=== PATIENT | male | born 1990 | race Two or more races ===

== ENCOUNTER 2023-04-04 17:17 | Emergency (ER) | payer SELFPAY ==
[~2023-04-04] VITALS: Ht 170.2 cm; Wt 81.8 kg
[2023-04-04 18:09] LABS: Basophils # (auto) 0 10 ^3/uL (0-0.2); Basophils % (auto) 0.4 % (0.0-2.0); Eosinophils # (auto) 0.2 10 ^3/uL (0-0.8); Eosinophils % (auto) 2.5 % (0.0-7.0); Hematocrit 45.4 % (41.0-53.0); Hemoglobin 15.8 g/dL (13.5-17.5); Lymphocytes # (auto) 1.9 10 ^3/uL (0.4-5.4); Lymphocytes % (auto) 25.1 % (10.0-50.0); Mean Corpuscular Hemoglobin 29.6 pg (28.0-32.0); Mean Corpuscular Hgb Conc. 34.8 g/dL (32.0-36.0); Monocytes % (auto) 12.5 % (0.0-12.0); Neutrophils # (auto) 4.6 10 ^3/uL (1.6-8.6); Neutrophils % (auto) 59.5 % (37.0-80.0); Nucleated Red Blood Cells % 0.2 %; Red Blood Cells 5.34 10^6/uL (4.5-5.90); Red Cell Distribution Width 12.7 % (11.8-14.3); White Blood Cell 7.7 10^3/uL (4.4-10.8)
[2023-04-04 18:28] LABS: Potassium 3.2 mmol/L (3.5-5.1)
[2023-04-04 18:34] LABS: Albumin 4.3 g/dL (3.4-5.0); BUN/Creatinine Ratio 9.2 (10.0-20.0)
[2023-04-04 18:36] LABS: Bilirubin, Total 0.6 mg/dL (0.2-1.0); Total Protein 8.2 g/dL (6.4-8.2)
[2023-04-04 18:55] LABS: Urine Bacteria NONE SEEN /hpf (None Seen); Urine Blood Negative /uL (Negative); Urine Clarity Clear (Clear); Urine Color Colorless (Yellow); Urine Protein, UAD Negative (Negative); Urine Specific Gravity 1.006 (1.001-1.035); Urine Urobilinogen Normal (Negative); Urine WBC <1 /hpf (0 - 3); Urine pH 6.5 (5.0-8.0)
[2023-04-04] MEDS ORDERED: FAMO20TA10 PO (21:08)
[2023-04-04] MEDS ORDERED: ZOFR4T PO (21:08)
[2023-04-04 21:15] VITALS: BP 132/87; TEMP 98.9
[2023-04-04 21:39] VITALS: PULSE 84; RESP 17; O2SAT 98
== END 2023-04-04 21:41 | disposition home or self-care (01) ==
LOC: ER 17:17
DX: K29.70 Gastritis, unspecified, without bleeding (principal); R51.9 Headache, unspecified; F17.210 Nicotine dependence, cigarettes, uncomplicated; F15.90 Other stimulant use, unspecified, uncomplicated; Z79.899 Other long term (current) drug therapy
CPT/HCPCS: 36415; 74176; 80053; 81001; 85025